=== PATIENT | male | born 1990 | race Caucasian/White ===

== ENCOUNTER 2022-11-09 20:42 | Outpatient (CLI) | payer BC, SELFPAY | END 2022-11-09 20:43 | disposition home or self-care (01) | LOC: AMB 11-11 13:24 | PROVIDERS: Visit Provider Family Medicine | DX: F41.9 Anxiety disorder, unspecified (principal) | CPT/HCPCS: A0998 ==

== ENCOUNTER 2022-11-09 21:04 | Emergency (ER) | payer BC, SELFPAY ==
[2022-11-09 21:08] VITALS: BP 156/104; PULSE 89; RESP 18; TEMP 36.7; O2SAT 95; BMI 28.2
[2022-11-09 21:48] VITALS: BP 131/96; PULSE 87; RESP 18; O2SAT 89
[2022-11-09 22:19] VITALS: BP 150/131; PULSE 74; RESP 18; O2SAT 94
--- NOTE | 2022-11-09 22:41 | ED.GENADULT ---
HPI - General Adult General Time Seen by Provider: 22:41 Date Seen: 11/09/22 Chief complaint: Psychiatric Problem/Disorder Stated complaint: Withdrawals Time Seen by Provider: 11/09/22 22:27 Source: patient, RN notes reviewed and old records reviewed Mode of arrival: ambulatory Limitations: no limitations History of Present Illness HPI narrative: 32-year-old male who comes in today after running out of methadone and klonapin. Brought in by police, initially for driving without a license. Last doses two days ago. Usual gets methadone from [facility] [place], also clonapin 0.5mg TID. Patient reports he is on methadone for substance use. Related Data Home Medications Medication Instructions Recorded Confirmed clonazepam 0.5 mg tablet 0.5 mg PO TID 11/09/22 11/09/22 gabapentin 600 mg tablet 600 mg PO TID 11/09/22 11/09/22 methadone .ROUTE 11/09/22 mirtazapine 15 mg tablet (Remeron) 7.5 mg PO QHS 11/09/22 11/09/22 Allergies Allergy/AdvReac Type Severity Reaction Status Date / Time No Known Drug Allergies Allergy Verified 11/09/22 21:17 PFSH PFS Social History Smoking Status: Never smoker Do you use any of these nicotine containing products: None How often do you have a drink containing alcohol: never AUDIT-C Alcohol total score: 0 Non-prescribed substance use: former substance user and declined to answer Non-prescribed substance use details: herion years ago, current methadone and clonazapam Exam Narrative: Exam Narrative: General: Well-developed and well-nourished, no acute distress Head: Atraumatic and normocephalic Eyes: Pupils are equal reactive, extraocular motions intact, conjunctiva clear ENT: External nose and ears are normal, posterior pharynx without erythema or exudate Neck: No midline cervical tenderness, full spontaneous range of motion the neck, trachea midline, no adenopathy Heart: Regular rate and rhythm no murmurs or thrills Lungs: Clear to auscultation bilaterally without wheezes or crackles Abdomen: Soft, nontender, nondistended with active bowel sounds Musculoskeletal: No tenderness, deformity, or edema Neurologic: Awake, alert, and oriented x3, no gross focal neurologic deficits, cranial nerves intact as tested Psych: Mood and affect are appropriate Skin: No rashes Const: Vital Signs, click to edit/add: Vital Signs - 24 hr 11/09/22 21:08 11/09/22 21:48 11/09/22 22:19 Temperature 98.0 F Pulse Rate 87 74 Pulse Rate [Pulse Oximeter] 89 Respiratory Rate 18 18 18 Blood Pressure 131/96 H 150/131 H Blood Pressure [Ri ght Upper Arm] 156/104 H Pulse Oximetry 95 89 94 Oxygen Delivery Me thod Room Air Course Course Hospital Course: Patient seen and examined, prior records reviewed. Patient presents today with concern for withdrawal, has not had methadone for couple of days and also reports he has been out of his clonazepam. On exam here, he is hypertensive but not tachycardic, tremulous, diaphoretic, or agitated. Reviewed [place] prescribing database, last fill of clonazepam was October 13 so patient may be slightly early for his refill, and does. Has 5 refills of his clonazepam at his pharmacy. A cannot verify his methadone prescribing or dose. 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 Vital Signs Vital signs: Initial Vital Signs Temperature 98.0 F 11/09/22 21:08 Temperature Source Temporal Artery Scan 11/09/22 21:08 Pulse Rate 89 11/09/22 21:08 Respiratory Rate 18 11/09/22 21:08 Blood Pressure 156/104 H 11/09/22 21:08 Blood Pressure Mean 121 H 11/09/22 21:08 Blood Pressure Position Supine 11/09/22 21:08 Pulse Oximetry 95 11/09/22 21:08 Oxygen Delivery Method Room Air 11/09/22 21:08 Vital Signs Temperature 98.0 F 11/09/22 21:08 Pulse Rate 89 11/09/22 21:08 Respiratory Rate 18 11/09/22 21:08 Blood Pressure 156/104 H 11/09/22 21:08 Pulse Oximetry 95 11/09/22 21:08 Oxygen Delivery Method Room Air 11/09/22 21:08 Temperature 98.0 F 11/09/22 21:08 Pulse Rate 74 11/09/22 22:19 Respiratory Rate 18 11/09/22 22:19 Blood Pressure 150/131 H 11/09/22 22:19 Pulse Oximetry 94 11/09/22 22:19 Oxygen Delivery Method Room Air 11/09/22 21:08 Discharge Plan Discharge Clinical Impression: Patient on methadone maintenance therapy Patient Disposition: Home, Self-Care Condition: Stable Instructions: Opioid Withdrawal (ED) Additional Instructions: Contact your regular prescribers for methadone and clonazepam refills Activity Level: No Restrictions Discharge Diet: Regular Prescriptions: No Action methadone .ROUTE clonazepam 0.5 mg tablet 0.5 mg PO TID gabapentin 600 mg tablet 600 mg PO TID mirtazapine [Remeron] 15 mg tablet 7.5 mg PO QHS Stand Alone Forms: [employer] [facility] Info Instructions
[2022-11-09 23:00] VITALS: BP 156/104; PULSE 89; RESP 18; TEMP 36.7
[2022-11-09] MEDS: clonazePAM 0.5 MG TABLET PO (23:07)
--- NOTE | 2022-11-10 00:28 | PC.NURSE ---
patient DC accompanied by girlfriend, no further concerns or questions.
== END 2022-11-09 23:08 | disposition home or self-care (01) ==
PROVIDERS: Emergency Provider Family Medicine
DX: Z76.0 Encounter for issue of repeat prescription (principal); F11.23 Opioid dependence with withdrawal
CPT/HCPCS: 99283; A9270